=== PATIENT | male | born 1965 | race Caucasian/White ===

== ENCOUNTER → 2017-03-17 | Outpatient (CLI) | payer MEDICARE, OTHER ==
[2017-03-17 14:27] VITALS: BP 130/84; PULSE 72; TEMP 98.1; BMI 58.0
--- NOTE | 2017-04-28 07:05 | P.HPBAR ---
Bariatric H&P - History & Physicial H&P Date: 03/17/17 History & Physicial: Visit/CC: two year followup Patient initial contact: Initial weight: 209.424 kg Initial weight in pounds: 461.70 Height: 5 ft 9 in Initial BMI: 68.1 Last weight: Current weight: 178.353 kg Current weight in pounds: 393.20 Current BMI: 58.0 [place] body weight (based on NIH guidelines): 72.575 kg Excess body weight loss: 22.7% The patient is a 51 year-old M who presents for Bariatric Assessment. meet with save all operator. Healed well... abdomen looks good 2 week protein diet.... DATE OF SERVICE: 03/17/2017 CHIEF COMPLAINT: Follow-up sleeve gastrectomy. HISTORY OF PRESENT ILLNESS: Mendoza Garland is a very pleasant 51-year-old gentleman with long-standing history in the bariatric program over the past 3 to 5 years. He underwent a sleeve gastrectomy November 13, 2013. He is over 3 years out. His heaviest personal lifetime weight was 479 pounds for his 5 foot 9 frame. His body mass index was 70.9. Today he comes in weighing 392 pounds. He has gained 41 pounds in 2 years since his last visit. He reports undergoing a divorce which caused distress to his life. Body mass index is now reduced to 58. His percent excess weight loss is 28%. He has lost a total of 87 pounds. He denies any heartburn. He does report need for colonoscopy with his history of multiple high-risk colon polyps. He still lives almost 3 hours away. He is eager to return back to bariatric program and start weight loss. PAST MEDICAL HISTORY: 1. Coronary artery disease. 2. Super super morbid obesity. 3. Dyslipidemia. 4. Asthma. 5. Obstructive sleep apnea. 6. Venostasis disease. 7. Anxiety. 8. Vitamin D deficiency. 9. History of myocardial infarction. 10. Osteoarthritis of the lower extremities and back. 11. Hypothyroidism. 12. Iron deficiency anemia. 13. History of gastritis. 14. Multiple colon polyps. PAST SURGICAL HISTORY: 1. Cardiac catheterization in 2010. 2. Repeat stress echo in 2012. 3. Excision of left chest wall lipoma. 4. Upper endoscopy. 5. Status post sleeve gastrectomy. MEDICATIONS: 1. Requip. 2. Prilosec. 3. Nystatin powder. 4. Lopressor. 5. Synthroid. 6. Combivent. 7. Hydrocodone. 8. Fenofibrate 9. Zetia 10. Vitamin D. 11. Calcium. 12. Aspirin. 13. Atorvastatin ALLERGIES: 1. ACCUPRIL. 2. FLOVENT. SOCIAL HISTORY: No active tobacco or alcohol use. FAMILY HISTORY: Significant for super morbid obesity, including ovarian cancer. REVIEW OF SYSTEMS: CONSTITUTIONAL: His heaviest personal lifetime weight was 479 pounds for his 5 foot 9 frame. His body mass index was 70.9. Today he comes in weighing 392 pounds. Body mass index is now reduced to 58.1. He has achieved 12.8 point BMI point reduction. His percent excess weight loss is now up to 28%. He has lost a total of 87 pounds. [place] body weight of 168 pounds. MUSCULOSKELETAL: Bilateral knee pain including ankle pain. CARDIOVASCULAR: He is on at least 2 different blood pressure medications. Now restarted on medications for hyperlipidemia. HEENT: Wears glasses. Denies any trouble with hearing. SKIN: History of bilateral venostasis disease, including panniculitis. RESPIRATORY: Has severe obstructive sleep apnea, including asthma. GI: Prior history of gastric ulcerations. No reports of diarrhea or constipation. GENITOURINARY: Denies any urinary tract infection. ENDOCRINE: Has history of hypothyroidism. Denies diabetes. PSYCH: No reports of suicidal ideation; however, he does have depression; his doses have been unchanged. NEURO: No reports of headaches or seizure disorders. PHYSICAL EXAM: VITAL SIGNS: , 5 foot 9, 351 pounds. Body mass index of 58.1. Vital Signs Temp 98.1 F 03/17/17 14:24 Pulse 72 03/17/17 14:24 Resp BP 130/84 03/17/17 14:24 Pulse Ox GENERAL: Well-developed pleasant male in no acute distress. ABDOMEN: Soft, nontender, nondistended. No palpable incisional hernias CHEST: Nonlabored respirations. Equal bilateral excursions CARDIOVASCULAR: Regular rate. 2+ radial pulses MUSCULOSKELETAL: No clubbing, cyanosis, or edema. HEENT: No sclerae icterus. Extraocular movements grossly intact. No nasal drainage. NECK: Supple without lymphadenopathy. NEURO: No focal or lateralizing signs. Cranial nerves II-12 grossly intact. PSYCH: Appropriate affect. Alert and oriented to person, place and time. SKIN: Panniculitis of the abdomen. Well perfused. Good skin turgor. ASSESSMENT: 1. Morbid obesity due to exogenous caloric intake. 2. Body mass index reduced from 70.9 to 58.1. 3. Osteoarthritis of lower back secondary to morbid obesity. 4. Osteoarthritis of bilateral knees secondary to morbid obesit. 5. Cardiomyopathy from coronary artery disease with angioplasty. 6. Vitamin D deficiency. 7. Dietary surveillance and counseling. 8. History obstructive sleep apnea. 9. Elevated creatinine, hypertension renal insufficiency. 10. Weight regain following bariatric procedure. 11. Hypothyroidism. 12. Need for colonic screening. 13. History of gastric ulcers. PLAN: 1. He has struggled with his weight loss as he has multiple social stressors including a recent divorce. In the meantime, recommend two-week ketogenic diet. 2. Recommend bariatric metabolic panel. With his history of hypothyroidism, this puts him at risk for weight regain. 3. Recommend structured bariatric dietitian visits to restart weight loss. 4. Recommend colonoscopy. 5. With this history of gastric ulcers, may benefit from upper endoscopy as well. Past Medical History Past Medical History: Asthma, Chest Pain / Angina, Heart Failure, COPD, GERD/ Reflux, Hypertension, Myocardial Infarction ([place]), Osteoarthritis (OA), Respiratory Disorder, Sleep Apnea/CPAP/BIPAP, Thyroid Disorder Last Myocardial Infarction Date:: 2008 History of Any Multi-Drug Resistant Organisms: None Reported Past Surgical History: Bariatric Surgery, Heart Catheterization, Heart Catheterization With Stent Additional Past Surgical History / Comment(s): Sleeve 11/13/13 Past Anesthesia/Blood Transfusion Reactions: No Reported Reaction Date of Last Stent Placement:: 2008, 2004, 1998 Past Psychological History: Depression Smoking Status: Former smoker Past Alcohol Use History: Rare Past Drug Use History: None Reported - Past Family History Mother Family Medical History: Cancer, Diabetes Mellitus Surgical - Exam Vital Signs Temp Pulse BP 98.1 F 72 130/84 03/17/17 14:24 03/17/17 14:24 03/17/17 14:24 Bariatric Checklist Checklist: Plan: Checklist: EGD: 1. Hiatal hernia: 2. H. Pylori: HgbA1c: Vitamin D: Smoking: Former smoker Primary care physician referral: dr le Psychiatry clearance: Cardiology clearance: Sleep study: Diet journal: VTE risk score: VTE risk level: Rehab needs at discharge:
== END | disposition home or self-care (01) ==
LOC: BARWHC3 13:01
PROVIDERS: ATTEND Surgery Plastic and Reconstructive Surgery
DX: Z48.815 Encounter for surgical aftercare following surgery on the digestive system (principal); E66.01 Morbid (severe) obesity due to excess calories; M47.816 Spondylosis without myelopathy or radiculopathy, lumbar region; M17.0 Bilateral primary osteoarthritis of knee; I25.10 Atherosclerotic heart disease of native coronary artery without angina pectoris; E55.9 Vitamin D deficiency, unspecified; R79.89 Other specified abnormal findings of blood chemistry; I10 Essential (primary) hypertension; N28.9 Disorder of kidney and ureter, unspecified; E03.9 Hypothyroidism, unspecified; I42.9 Cardiomyopathy, unspecified; J44.9 Chronic obstructive pulmonary disease, unspecified; I50.9 Heart failure, unspecified; I25.2 Old myocardial infarction; E78.5 Hyperlipidemia, unspecified; Z88.8 Allergy status to other drugs, medicaments and biological substances; Z68.43 Body mass index [BMI] 50.0-59.9, adult; Z98.84 Bariatric surgery status; Z71.3 Dietary counseling and surveillance; Z87.09 Personal history of other diseases of the respiratory system; Z87.19 Personal history of other diseases of the digestive system; Z98.61 Coronary angioplasty status; Z87.891 Personal history of nicotine dependence; Z99.89 Dependence on other enabling machines and devices; Z79.82 Long term (current) use of aspirin; Z79.891 Long term (current) use of opiate analgesic; Z79.899 Other long term (current) drug therapy
CPT/HCPCS: 97803; G0463; 99211

== ENCOUNTER 2017-12-28 20:51 | Observation (INO) | payer MEDICARE, OTHER ==
--- NOTE | 2017-12-28 21:02 | ED ---
General Adult HPI - General Chief complaint: Arrhythmia/Palpitations Stated complaint: heart racing/lightheaded Time Seen by Provider: 12/28/17 21:01 Source: patient Mode of arrival: ambulatory Limitations: no limitations - History of Present Illness Initial comments: Liliya is a 52-year-old morbidly obese male with a history significant for known coronary artery disease and COPD who presents to the emergency department today for evaluation of palpitations. Patient reports that throughout the day he has been feeling his heart race. Palpitations are associated with some lightheadedness but no chest pain, chest pressure or shortness of breath. Palpitations of been happening throughout the day today but were persistent this evening which prompted him to come to the ER for further evaluation. Patient denies any recent change in his oral medications though he does admit that 3 weeks ago he was changed from Combivent to 2 different inhalers including albuterol and another inhaler he cannot recall at the time of initial evaluation. He reports he's been compliant with these medications. Patient does have COPD but denies any acute exacerbation feeling of wheezing or shortness of breath. Patient does have a history significant for coronary artery disease with STEMI in the past and stenting 3. - Related Data Home Medications Medication Instructions Recorded Confirmed Ezetimibe [Zetia] 10 mg PO HS 10/11/13 12/28/17 Levothyroxine Sodium [Synthroid] 25 mcg PO QAM 10/11/13 12/28/17 rOPINIRole HCL [Requip] 1 mg PO HS 10/11/13 12/28/17 Atorvastatin Calcium 80 mg PO DAILY 10/10/14 12/28/17 Fenofibrate 150 mg PO HS 03/17/17 12/28/17 Albuterol Inhaler [Ventolin Hfa 1 - 2 puff INHALATION RT-Q6H PRN 12/28/17 Inhaler] Aspirin EC [Ecotrin Low Dose] 81 mg PO DAILY 12/28/17 12/28/17 Dabigatran [Pradaxa] 150 mg PO BID 12/28/17 12/28/17 Dronedarone [Multaq] 400 mg PO AC-BID 12/28/17 12/28/17 Ergocalciferol [Vitamin D2 50,000 unit PO FR 12/28/17 12/28/17 (DRISDOL)] Fluticasone/Vilanterol [Breo 1 puff INHALATION RT-DAILY 12/28/17 12/28/17 Ellipta 200-25 Mcg INH] Metoprolol Tartrate [Lopressor] 75 mg PO BID 12/28/17 12/28/17 Tamsulosin [Flomax] 0.4 mg PO DAILY 12/28/17 12/28/17 Umeclidinium [place] [Incruse 1 puff INHALATION RT-DAILY 12/28/17 12/28/17 Ellipta] Allergies Allergy/AdvReac Type Severity Reaction Status Date / Time fluticasone propionate Allergy Chest Pain Verified 12/28/17 21:28 [From Flovent Diskus] quinapril HCl [From Accupril] Allergy Rash/Hives Verified 12/28/17 21:28 Review of Systems ROS Statement: Those systems with pertinent positive or pertinent negative responses have been documented in the HPI. ROS Other: All systems not noted in ROS Statement are negative. Past Medical History Past Medical History: Asthma, Chest Pain / Angina, Heart Failure, COPD, GERD/ Reflux, Hypertension, Myocardial Infarction ([place]), Osteoarthritis ([place]), Respiratory Disorder, Sleep Apnea/CPAP/BIPAP, Thyroid Disorder Last Myocardial Infarction Date:: 2008 History of Any Multi-Drug Resistant Organisms: None Reported Past Surgical History: Bariatric Surgery, Heart Catheterization, Heart Catheterization With Stent Additional Past Surgical History / Comment(s): Sleeve 11/13/13 Past Anesthesia/Blood Transfusion Reactions: No Reported Reaction Date of Last Stent Placement:: 2008, 2004, 1998 Past Psychological History: Depression Smoking Status: Former smoker Past Alcohol Use History: Rare Past Drug Use History: None Reported - Past Family History Mother Family Medical History: Cancer, Diabetes Mellitus General Exam - General Exam Comments Initial Comments: GENERAL: Patient is well-developed and well-nourished. Patient is nontoxic and well- hydrated and is in no distress. Morbidly obese HENT: Normocephalic, Atraumatic. Neck is soft and supple. No significant lymphadenopathy is noted. Oropharynx is clear. Moist mucous membranes. Neck has full range of motion without eliciting any pain. EYES: The sclera were anicteric and conjunctiva were pink and moist. Extraocular movements were intact and pupils were equal round and reactive to light. Eyelids were unremarkable. PULMONARY: Unlabored respirations. Good breath sounds bilaterally. No audible rales rhonchi or wheezing was noted. CARDIOVASCULAR: There is a regular rate and rhythm without any murmurs gallops or rubs. Extremities are warm and well perfused ABDOMEN: Soft and nontender with normal bowel sounds. SKIN: Skin is clear with no lesions or rashes and otherwise unremarkable. Skin is warm and dry, no diaphoresis NEUROLOGIC: Patient is alert and oriented x3. Cranial nerves II through XII are grossly intact. Motor and sensory are also intact. Normal speech, volume and content. Symmetrical smile. MUSCULOSKELETAL: Normal extremities with adequate strength and full range of motion. No lower extremity swelling or edema. No calf tenderness. LYMPHATICS: No significant lymphadenopathy is noted PSYCHIATRIC: Normal psychiatric evaluation. Limitations: no limitations Limitations: no limitations Course Vital Signs 12/28/17 20:52 Temperature 98.1 F Pulse Rate 150 H Respiratory 18 Rate Blood Pressure 116/67 O2 Sat by Pulse 95 Oximetry EKG Findings - EKG Comments: EKG Findings:: EKG obtained at 2102, rate is 95, rhythm is sinus, normal axis, normal intervals, IA 172, QRS 96, QTC 480. There are no acute ST elevations or depressions. There are Q waves indicating previous [place]. There are frequent PVCs. Medical Decision Making - Medical Decision Making Patient with a significant pulmonary and cardiac history presenting with palpitations and initial heart rate of 150 vital signs otherwise stable no hypoxia and no shortness of breath Cardiac workup was initiated EKG with frequent PVCs Labs with no significant abnormalities. Electrolytes within normal limits. TSH within normal limits. Troponin negative. Patient's heart rate remains in the 80s to 90s on the monitor, patient resting comfortably. During the patient's very significant history and profound tachycardia upon arrival I do feel he warrants admission to the hospital for further evaluation by cardiology. Patient is agreeable to this. Patient care was discussed with Dr. Patricio of the [facility] who accepts the patient to their service with a consult to cardiology. Placement orders and consult cardiology were placed. - Lab Data Result diagrams: 12/28/17 21:10 12/28/17 21:10 Lab Results 12/28/17 12/28/17 12/28/17 Range/Units 21:10 21:10 21:10 WBC 7.8 (3.8-10.6) k/uL RBC 4.66 (4.30-5.90) m/uL Hgb 13.8 (13.0-17.5) gm/dL Hct 41.5 (39.0-53.0) % MCV 89.2 (80.0-100.0) fL MCH 29.6 (25.0-35.0) pg MCHC 33.2 (31.0-37.0) g/dL RDW 13.3 (11.5-15.5) % Plt Count 315 (150-450) k/uL Neutrophils % 62 % Lymphocytes % 22 % Monocytes % 6 % Eosinophils % 7 % Basophils % 2 % Neutrophils # 4.9 (1.3-7.7) k/uL Lymphocytes # 1.8 (1.0-4.8) k/uL Monocytes # 0.5 (0-1.0) k/uL Eosinophils # 0.5 (0-0.7) k/uL Basophils # 0.1 (0-0.2) k/uL Sodium 139 (137-145) mmol/L Potassium 4.1 (3.5-5.1) mmol/L Chloride 103 (98-107) mmol/L Carbon Dioxide 27 (22-30) mmol/L Anion Gap 9 mmol/L BUN 22 H (9-20) mg/dL Creatinine 1.24 (0.66-1.25) mg/dL Est GFR (CKD-EPI)AfAm 76 (>60 ml/min/1.73 sqM) Est GFR (CKD-EPI)NonAf 66 (>60 ml/min/1.73 sqM) Glucose 138 H (74-99) mg/dL Calcium 9.2 (8.4-10.2) mg/dL Magnesium 1.8 (1.6-2.3) mg/dL Total Bilirubin 0.5 (0.2-1.3) mg/dL AST 23 (17-59) U/L ALT 24 (21-72) U/L Alkaline Phosphatase 38 (38-126) U/L Total Creatine Kinase 153 (55-170) U/L CK-MB (CK-2) 0.8 (0.0-2.4) ng/mL CK-MB (CK-2) Rel Index 0.5 Troponin I <0.012 (0.000-0.034) ng/mL NT-Pro-B Natriuret Pep pg/mL Total Protein 6.6 (6.3-8.2) g/dL Albumin 3.7 (3.5-5.0) g/dL TSH 2.090 (0.465-4.680) mIU/L 12/28/17 Range/Units 21:10 WBC (3.8-10.6) k/uL RBC (4.30-5.90) m/uL Hgb (13.0-17.5) gm/dL Hct (39.0-53.0) % MCV (80.0-100.0) fL MCH (25.0-35.0) pg MCHC (31.0-37.0) g/dL RDW (11.5-15.5) % Plt Count (150-450) k/uL Neutrophils % % Lymphocytes % % Monocytes % % Eosinophils % % Basophils % % Neutrophils # (1.3-7.7) k/uL Lymphocytes # (1.0-4.8) k/uL Monocytes # (0-1.0) k/uL Eosinophils # (0-0.7) k/uL Basophils # (0-0.2) k/uL Sodium (137-145) mmol/L Potassium (3.5-5.1) mmol/L Chloride (98-107) mmol/L Carbon Dioxide (22-30) mmol/L Anion Gap mmol/L BUN (9-20) mg/dL Creatinine (0.66-1.25) mg/dL Est GFR (CKD-EPI)AfAm (>60 ml/min/1.73 sqM) Est GFR (CKD-EPI)NonAf (>60 ml/min/1.73 sqM) Glucose (74-99) mg/dL Calcium (8.4-10.2) mg/dL Magnesium (1.6-2.3) mg/dL Total Bilirubin (0.2-1.3) mg/dL AST (17-59) U/L ALT (21-72) U/L Alkaline Phosphatase (38-126) U/L Total Creatine Kinase (55-170) U/L CK-MB (CK-2) (0.0-2.4) ng/mL CK-MB (CK-2) Rel Index Troponin I (0.000-0.034) ng/mL NT-Pro-B Natriuret Pep 175 pg/mL Total Protein (6.3-8.2) g/dL Albumin (3.5-5.0) g/dL TSH (0.465-4.680) mIU/L Disposition Clinical Impression: Palpitations, Tachycardia, Morbid obesity Disposition: ADMITTED IP TO THIS HOSP Condition: Stable Referrals: Michael Fontanez MD [Primary Care Provider] - 1-2 days
[2017-12-28 21:27] LABS: Basophils # (A) 0.1 k/uL (0-0.2); Basophils % (A) 2 %; Eosinophils # (A) 0.5 k/uL (0-0.7); Eosinophils % (A) 7 %; HCT 41.5 % (39.0-53.0); HGB 13.8 gm/dL (13.0-17.5); Lymphocytes # (A) 1.8 k/uL (1.0-4.8); Lymphocytes % (A) 22 %; MCH 29.6 pg (25.0-35.0); MCHC 33.2 g/dL (31.0-37.0); MCV 89.2 fL (80.0-100.0); Monocytes # (A) 0.5 k/uL (0-1.0); Monocytes % (A) 6 %; Neutrophils # (A) 4.9 k/uL (1.3-7.7); Neutrophils % (A) 62 %; Platelet Count 315 k/uL (150-450); RBC 4.66 m/uL (4.30-5.90); RDW 13.3 % (11.5-15.5); WBC 7.8 k/uL (3.8-10.6)
[2017-12-28 21:37] LABS: Albumin 3.7 g/dL (3.5-5.0); Calcium 9.2 mg/dL (8.4-10.2); Magnesium 1.8 mg/dL (1.6-2.3); Potassium 4.1 mmol/L (3.5-5.1); Total Bilirubin 0.5 mg/dL (0.2-1.3); Total Protein 6.6 g/dL (6.3-8.2)
[2017-12-28 21:47] LABS: Creatine Kinase 153 U/L (55-170)
--- NOTE | 2017-12-28 21:49 | XR ---
EXAMINATION TYPE: XR chest 2V DATE OF EXAM: 12/28/2017 COMPARISON: 11/14/2013 HISTORY: Chest pain TECHNIQUE: Frontal and lateral views of the chest are obtained. FINDINGS: Heart and mediastinum are normal. Lungs are clear. Diaphragm is normal. Bony thorax is int act. There are chest leads. IMPRESSION: Normal chest. No change.
[2017-12-28 22:00] LABS: Creatine Kinase MB 0.8 ng/mL (0.0-2.4); Troponin I <0.012 ng/mL (0.000-0.034)
[2017-12-28] MEDS ORDERED: NALOXONE 0.4 MG/ML 1 ML VIAL IV PRN (22:24)
[2017-12-28 22:49] LABS: INR 1.3 (<1.2); Partial Thromboplastin Time 36.1 sec (22.0-30.0)
[2017-12-28] MEDS ORDERED: IPRATROPIUM-ALBUTEROL 3 ML NEB INHALATION PRN (23:21)
[2017-12-28 23:37] VITALS: BMI 54.5
--- NOTE | 2017-12-29 00:14 | P.HPIM ---
History of Present Illness H&P Date: 12/28/17 Chief Complaint: palpitations and dizziness 52-year-old male with history of supraventricular tachycardia on multiple and blood thinners. Patient presented with sudden onset palpitations. He recalls that the only time he felt like this was 3 years ago when he was undergoing colonoscopy procedure was canceled due to irregular heartbeat and since then he has been on multi-chem blood thinners. Today while visiting his kids in the city [place] he felt an attack of short-lived palpitations around 3 PM and then another attack later this night both were associated with some lightheadedness denies any chest pain or shortness of breath. He reports being compliant with his medications. Denies any nausea vomiting or abdominal pain. Denies any fevers or chills. Patient reports some changes in his inhalers , where Ventolin was added recently that he's been using 3-4 times daily for the past 2- 3 weeks. He is currently seen on the medical floor, denies any chest pain or trouble breathing denies any fevers or chills denies any dizziness or lightheadedness. He feels back to normal. Patient reports being compliant with medications, denies any GI bleeding. In the emergency department he was found to have a heart rate of 150 later on was rate controlled with multiple PVCs. Otherwise EKG showed evidence of old infarct. Review of Systems Pertinent positives as noted in HPI. All other systems were reviewed and are negative Past Medical History Past Medical History: Asthma, Chest Pain / Angina, Heart Failure, COPD, GERD/ Reflux, Hypertension, Myocardial Infarction ([place]), Osteoarthritis (OA), Respiratory Disorder, Sleep Apnea/CPAP/BIPAP, Thyroid Disorder Last Myocardial Infarction Date:: 2008 History of Any Multi-Drug Resistant Organisms: None Reported Past Surgical History: Bariatric Surgery, Heart Catheterization, Heart Catheterization With Stent Additional Past Surgical History / Comment(s): Sleeve 11/13/13 Past Anesthesia/Blood Transfusion Reactions: No Reported Reaction Date of Last Stent Placement:: 2008, 2004, 1998 Past Psychological History: Depression Smoking Status: Former smoker Past Alcohol Use History: Rare Past Drug Use History: None Reported - Past Family History Mother Family Medical History: Cancer, Diabetes Mellitus Medications and Allergies Home Medications Medication Instructions Recorded Confirmed Type Ezetimibe [Zetia] 10 mg PO HS 10/11/13 12/28/17 History Levothyroxine Sodium [Synthroid] 25 mcg PO QAM 10/11/13 12/28/17 History rOPINIRole HCL [Requip] 1 mg PO HS 10/11/13 12/28/17 History Atorvastatin Calcium 80 mg PO DAILY 10/10/14 12/28/17 History Fenofibrate 150 mg PO HS 03/17/17 12/28/17 History Albuterol Inhaler [Ventolin Hfa 1 - 2 puff INHALATION RT-Q6H PRN 12/28/17 History Inhaler] Aspirin EC [Ecotrin Low Dose] 81 mg PO DAILY 12/28/17 12/28/17 History Dabigatran [Pradaxa] 150 mg PO BID 12/28/17 12/28/17 History Dronedarone [Multaq] 400 mg PO AC-BID 12/28/17 12/28/17 History Ergocalciferol [Vitamin D2 50,000 unit PO FR 12/28/17 12/28/17 History (DRISDOL)] Fluticasone/Vilanterol [Breo 1 puff INHALATION RT-DAILY 12/28/17 12/28/17 History Ellipta 200-25 Mcg INH] Metoprolol Tartrate [Lopressor] 75 mg PO BID 12/28/17 12/28/17 History Tamsulosin [Flomax] 0.4 mg PO DAILY 12/28/17 12/28/17 History Umeclidinium [place] [Incruse 1 puff INHALATION RT-DAILY 12/28/17 12/28/17 History Ellipta] Allergies Allergy/AdvReac Type Severity Reaction Status Date / Time fluticasone propionate Allergy Chest Pain Verified 12/28/17 21:28 [From Flovent Diskus] quinapril HCl [From Accupril] Allergy Rash/Hives Verified 12/28/17 21:28 Physical Exam Vitals: Vital Signs Temp Pulse Resp BP Pulse Ox 12/28/17 22:50 84 18 146/99 96 12/28/17 20:52 98.1 F 150 H 18 116/67 95 Intake and Output 12/28/17 12/28/17 12/29/17 14:59 22:59 06:59 Other: Weight 172.365 kg Constitutional: No acute distress, conversant, pleasant, morbidly obese Eyes: Anicteric sclerae, moist conjunctiva, no lid-lag Pupils equal round reactive to light ENMT: NC/AT Oropharynx clear, no erythema, exudates Neck: Supple, FROM, no masses, or JVD No carotid bruits No thyromegaly Lungs: Clear to auscultation Clear to percussion Normal respiratory effort, no accessory muscle use Cardiovascular: Heart regular in rate and rhythm, No murmurs, gallops, or rubs No peripheral edema Abdominal: Soft Nontender, no guarding, rebound or rigidity Abdomen moving with respiration Normoactive bowel sounds No hepatomegaly, No splenomegaly No palpable mass No abdominal wall hernia noted Skin: Normal temperature, tone, texture, turgor No induration No subcutaneous nodules No rash, lesions No ulcers Extremities: chronic skin changes over left ankle No digital cyanosis No clubbing Pedal pulses intact and symmetrical Radial pulses intact and symmetrical No calf tenderness Psychiatric: Alert and oriented to person, place and time Appropriate affect fair judgment Neuro Muscles Strength 5/5 in all 4 extremities Sensation to light touch grossly present throughout Cranial nerves II-XII grossly intact No focal sensory deficits Lymphatics: no palpable cervical or supraclavicular , or inguinal lymph nodes Results CBC & Chem 7: 12/28/17 21:10 12/28/17 21:10 Labs: Abnormal Lab Results - Last 24 Hours (Table) 12/28/17 12/28/17 Range/Units 21:10 22:09 INR 1.3 H (<1.2) APTT 36.1 H (22.0-30.0) sec BUN 22 H (9-20) mg/dL Glucose 138 H (74-99) mg/dL Assessment and Plan Assessment: 52 year old male with history of SVT of multaq, admitted under observation with anticipated length of stay of <48 hours, due to symptomatic SVT today, patient rate controlled later however, had multiple PVCs and continued to feel lightheaded, for which admitted for further workup and cardiology eval Plan: SVT, symptomatic with lightheadedness. history of CAD hypertension moderate persistent asthma LEIDA untreated hypothyroidism RLS cardiac monitoring resume home meds ECHOcardiogram and cardiology consult follow up electrolytes and morning labs DVT PPx, patient on pradaxa Surrogate decision-maker: patient sister CODE STATUS:full code Discussed with: Patient, ER, RN Anticipated discharge: <48hours Anticipated discharge place: home A total of 50 minutes was spent on the care of this complex patient more than 50 % of the time was spent in counseling and care coordination.
[2017-12-29 03:50] LABS: Basophils # (A) 0.1 k/uL (0-0.2); Basophils % (A) 2 %; Eosinophils # (A) 0.5 k/uL (0-0.7); Eosinophils % (A) 7 %; HCT 40.3 % (39.0-53.0); HGB 13.1 gm/dL (13.0-17.5); Lymphocytes # (A) 1.8 k/uL (1.0-4.8); Lymphocytes % (A) 26 %; MCH 29.5 pg (25.0-35.0); MCHC 32.5 g/dL (31.0-37.0); MCV 90.7 fL (80.0-100.0); Mean Platelet Volume 6.9; Monocytes # (A) 0.5 k/uL (0-1.0); Monocytes % (A) 7 %; Neutrophils # (A) 3.9 k/uL (1.3-7.7); Neutrophils % (A) 57 %; Platelet Count 312 k/uL (150-450); RBC 4.45 m/uL (4.30-5.90); RDW 13.5 % (11.5-15.5); WBC 6.9 k/uL (3.8-10.6)
[2017-12-29 04:15] LABS: Albumin 3.4 g/dL (3.5-5.0); Calcium 8.8 mg/dL (8.4-10.2); Potassium 4.5 mmol/L (3.5-5.1); Total Bilirubin 0.4 mg/dL (0.2-1.3)
[2017-12-29] MEDS: LEVOTHYROXINE 25 MCG TAB PO SCH ×2 (06:43→09:49)
[2017-12-29] MEDS ORDERED: DRONEDARONE 400 MG TAB PO SCH (07:30)
[2017-12-29] MEDS ORDERED: IPRATROPIUM 0.5 MG/2.5 ML NEBU INHALATION SCH (08:00)
[2017-12-29] MEDS ORDERED: SYMBICORT 160-4.5 MCG INHALER INHALATION SCH (08:00)
[2017-12-29] MEDS ORDERED: ATORVASTATIN 80 MG TAB PO SCH (09:00)
[2017-12-29] MEDS ORDERED: ASPIRIN 81 MG PO SCH (09:00)
[2017-12-29] MEDS ORDERED: TAMSULOSIN 0.4 MG CAP.ER.24H PO SCH (09:00)
[2017-12-29] MEDS ORDERED: DABIGATRAN 150 MG CAP PO SCH (09:00)
--- NOTE | 2017-12-29 11:13 | P.CRDCN ---
History of Present Illness History of present illness: This is a pleasant 52 male past medical history significant for coronary artery disease status post angioplasty, most recent cardiac catheterization 9 years ago. He states he had 6 stents in total. He also has COPD, hypertension, obstructive sleep apnea, hypothyroidism, COPD and questionable atrial fibrillation. He follows with a cloth shader out of [place] Dr. goff. He states he recently had a stress test in his office in July. We've asked to see him in consultation for symptoms of palpitations. He states yesterday while he was sitting down he felt his heart started to race. He said his pulse was very fast felt as though it was greater than 140 by palpation. He denies chest pain, shortness of breath, dizziness, nausea, vomiting or diaphoresis. He had no discomfort in the arms, back, neck or jaw. The palpitations ultimately subsided on their own with no alleviating factors. Documented heart rate on admission 150 but no EKG to reflect that. EKG on arrival reveals sinus mechanism with inferior Q waves noted and poor R- wave progression with no acute ST or T wave abnormalities noted there is evidence of PVCs. Telemetry tracings indicate sinus rhythm with PVCs and PACs. Chest x-ray is negative for an acute cardiopulmonary process. Laboratory data reviewed, hemoglobin 13.1, platelets 312, sodium 137, potassium 4.5, creatinine 1.09, magnesium 2.0, cardiac enzymes negative 2, and he proBNP 175, TSH 2.09. Current cardiac medications include aspirin 81 mg daily, atorvastatin 80 mg daily, Peridex 150 mg twice a day, multi-400 mg twice a day, study a 10 mg daily , fenofibrate 150 mg daily, Lopressor 75 mg twice a day. He also takes Requip, Lipitor, Flomax, albuterol. Review of Systems At the time of my exam: CONSTITUTIONAL: Denies fever. Denies chills. EYES: Denies blurred vision. Denies vision changes. Denies eye pain. EARS, NOSE, MOUTH & THROAT: Denies headache. Denies sore throat. Denies ear pain. CARDIOVASCULAR: Denies chest pain. Denies shortness of breath. Denies orthopnea. Denies PND. Denies palpitations. RESPIRATORY: Denies cough. GASTROINTESTINAL: Denies abdominal pain. Denies diarrhea. Denies constipation. Denies nausea. Denies vomiting. MUSCULOSKELETAL: Denies myalgias. INTEGUMENTARY: Denies pruitis. Denies rash. NEUROLOGIC: Denies numbness. Denies tingling. Denies weakness. PSYCHIATRIC: Denies anxiety. Denies depression. ENDOCRINE: Denies fatigue. Denies weight change. Denies polydipsia. Denies polyurina. GENITOURINARY: Denies burning, hematuria or urgency with micturation. HEMATOLOGIC: Denies history of anemia. Denies bleeding. Past Medical History Past Medical History: Asthma, Chest Pain / Angina, Heart Failure, COPD, GERD/ Reflux, Hypertension, Myocardial Infarction (AR), Osteoarthritis (OA), Respiratory Disorder, Sleep Apnea/CPAP/BIPAP, Thyroid Disorder Last Myocardial Infarction Date:: 2008 History of Any Multi-Drug Resistant Organisms: None Reported Past Surgical History: Bariatric Surgery, Heart Catheterization, Heart Catheterization With Stent Additional Past Surgical History / Comment(s): Sleeve 11/13/13 Past Anesthesia/Blood Transfusion Reactions: No Reported Reaction Date of Last Stent Placement:: 2008, 2004, 1998 Past Psychological History: Depression Smoking Status: Former smoker Past Alcohol Use History: Rare Past Drug Use History: None Reported - Past Family History Mother Family Medical History: Cancer, Diabetes Mellitus Medications and Allergies Home Medications Medication Instructions Recorded Confirmed Type Ezetimibe [Zetia] 10 mg PO HS 10/11/13 12/28/17 History Levothyroxine Sodium [Synthroid] 25 mcg PO QAM 10/11/13 12/28/17 History rOPINIRole HCL [Requip] 1 mg PO HS 10/11/13 12/28/17 History Atorvastatin Calcium 80 mg PO DAILY 10/10/14 12/28/17 History Fenofibrate 150 mg PO HS 03/17/17 12/28/17 History Albuterol Inhaler [Ventolin Hfa 1 - 2 puff INHALATION RT-Q6H PRN 12/28/17 History Inhaler] Aspirin EC [Ecotrin Low Dose] 81 mg PO DAILY 12/28/17 12/28/17 History Dabigatran [Pradaxa] 150 mg PO BID 12/28/17 12/28/17 History Dronedarone [Multaq] 400 mg PO AC-BID 12/28/17 12/28/17 History Ergocalciferol [Vitamin D2 50,000 unit PO FR 12/28/17 12/28/17 History (DRISDOL)] Fluticasone/Vilanterol [Breo 1 puff INHALATION RT-DAILY 12/28/17 12/28/17 History Ellipta 200-25 Mcg INH] Metoprolol Tartrate [Lopressor] 75 mg PO BID 12/28/17 12/28/17 History Tamsulosin [Flomax] 0.4 mg PO DAILY 12/28/17 12/28/17 History Umeclidinium [place] [Incruse 1 puff INHALATION RT-DAILY 12/28/17 12/28/17 History Ellipta] Allergies Allergy/AdvReac Type Severity Reaction Status Date / Time fluticasone propionate Allergy Chest Pain Verified 12/28/17 21:28 [From Flovent Diskus] quinapril HCl [From Accupril] Allergy Rash/Hives Verified 12/28/17 21:28 Physical Exam Vitals: Vital Signs Temp Pulse Pulse Resp BP BP Pulse Ox 12/29/17 04:00 16 12/29/17 03:39 97.8 F 60 16 107/65 94 L 12/29/17 00:00 98.1 F 76 16 139/77 92 L 12/28/17 22:50 84 18 146/99 96 12/28/17 20:52 98.1 F 150 H 18 116/67 95 Intake and Output 12/28/17 12/29/17 12/29/17 22:59 06:59 14:59 Other: # Voids 1 Weight 172.365 kg Blood pressure 107/65 heart rate 68 afebrile maintaining oxygen saturation on room air GENERAL: This is a 52-year-old male in no apparent distress at the time of my examination. Morbidly obese. HEENT: Head is atraumatic, normocephalic. Pupils are equal, round. Sclerae anicteric. Conjunctivae are clear. Mucous membranes of the mouth are moist. Neck is supple. There is no jugular venous distention. No carotid bruit is heard. LUNGS: Clear to auscultation no wheezes, rales or rhonchi. No chest wall tenderness is noted on palpation or with deep breathing. HEART: Regular rate and rhythm without murmurs, rubs or gallops. S1 and S2 heard. ABDOMEN: Soft, nontender. Bowel sounds are heard. No organomegaly noted. EXTREMITIES: No evidence of peripheral edema and no calf tenderness noted. VASCULAR: Radial and dorsalis pedis pulses palpated, no evidence of clubbing. NEUROLOGIC: Patient is awake, alert and oriented x3. Results 12/29/17 03:06 12/29/17 03:06 Cardiac Enzymes 12/28/17 12/28/17 12/29/17 Range/Units 21:10 21:10 03:06 AST 23 (17-59) U/L CK-MB (CK-2) 0.8 (0.0-2.4) ng/mL Troponin I <0.012 <0.012 (0.000-0.034) ng/mL 12/29/17 Range/Units 03:06 AST 22 (17-59) U/L CK-MB (CK-2) (0.0-2.4) ng/mL Troponin I (0.000-0.034) ng/mL Coagulation 12/28/17 Range/Units 22:09 PT 12.0 (9.0-12.0) sec APTT 36.1 H (22.0-30.0) sec CBC 12/28/17 12/29/17 Range/Units 21:10 03:06 WBC 7.8 6.9 (3.8-10.6) k/uL RBC 4.66 4.45 (4.30-5.90) m/uL Hgb 13.8 13.1 (13.0-17.5) gm/dL Hct 41.5 40.3 (39.0-53.0) % Plt Count 315 312 (150-450) k/uL Comprehensive Metabolic Panel 12/28/17 12/29/17 Range/Units 21:10 03:06 Sodium 139 137 (137-145) mmol/L Potassium 4.1 4.5 (3.5-5.1) mmol/L Chloride 103 103 (98-107) mmol/L Carbon Dioxide 27 26 (22-30) mmol/L BUN 22 H 21 H (9-20) mg/dL Creatinine 1.24 1.09 (0.66-1.25) mg/dL Glucose 138 H 91 (74-99) mg/dL Calcium 9.2 8.8 (8.4-10.2) mg/dL AST 23 22 (17-59) U/L ALT 24 25 (21-72) U/L Alkaline Phosphatase 38 28 L (38-126) U/L Total Protein 6.6 6.0 L (6.3-8.2) g/dL Albumin 3.7 3.4 L (3.5-5.0) g/dL Current Medications Generic Name Dose Route Start Last Admin Trade Name Freq PRN Reason Stop Dose Admin Aspirin 81 mg 12/29/17 09:00 Aspirin PO DAILY [facility] Atorvastatin Calcium 80 mg 12/29/17 09:00 Lipitor PO DAILY [facility] Budesonide/Formoterol Fumarate 2 puff 12/29/17 08:00 Symbicort 160-4.5 Mcg Inhaler INHALATION RT-BID [facility] Dabigatran 150 mg 12/29/17 09:00 Pradaxa PO BID [facility] Dronedarone 400 mg 12/29/17 07:30 Multaq PO AC-BID [facility] Ezetimibe 10 mg 12/29/17 21:00 Zetia PO HS [facility] Fenofibrate 160 mg 12/29/17 21:00 Lofibra PO HS [facility] Ipratropium [place] 0.5 mg 12/29/17 08:00 Atrovent Nebulized INHALATION RT-QID [facility] Levothyroxine Sodium 25 mcg 12/29/17 06:30 12/29/17 06:43 Synthroid PO Not Given DAILY@0630 [facility] Metoprolol Tartrate 75 mg 12/29/17 09:00 Lopressor PO BID [facility] Naloxone HCl 0.2 mg 12/28/17 22:24 Narcan IV Q2M PRN Opioid Reversal Ropinirole HCl 1 mg 12/29/17 00:00 12/29/17 05:55 Requip PO Not Given HS [facility] Tamsulosin HCl 0.4 mg 12/29/17 09:00 Flomax PO DAILY [facility] Intake and Output 12/28/17 12/29/17 12/29/17 22:59 06:59 14:59 Other: # Voids 1 Weight 172.365 kg 12/29/17 03:06 12/29/17 03:06 Assessment and Plan Assessment: ASSESSMENT Palpitations Coronary artery disease status post multiple angioplasties most recent heart catheterization 9 years ago. Hypertension Dyslipidemia Paroxysmal atrial fibrillation on long-term anticoagulation with pradaxa Hypothyroidism Obstructive sleep apnea COPD PLAN Obtain 2-D echocardiogram and Doppler study to assess cardiac structure and function. Obtain records from his primary cloth shader regarding his recent stress test. Apply 30 day event monitor, report to go to his primary cloth shader Dr. Garcia in [place]. Stable from a cardiac perspective. Lifestyle modifications recommended for weight loss. Thank you kindly for this consultation. Nurse Practitioner note has been reviewed, I agree with a documented findings and plan of care. Patient was seen and examined.
[2017-12-29] MEDS: METOPROLOL TARTRATE 25 MG TAB PO SCH ×2 (11:32→11:34)
[2017-12-29 14:46] VITALS: RESP 18
[2017-12-29 16:03] VITALS: BP 107/65; PULSE 60; TEMP 98.3
--- NOTE | 2017-12-29 17:55 | P.DS ---
Providers Date of admission: 12/28/17 22:24 Expected date of discharge: 12/29/17 Attending physician: Polina Haines MD Consults: 12/28/17 22:25 Consult Physician Urgent Consulting Provider: [facility] Consult Reason/Comments: tachycardia, palpitations Do you want consulting provider notified?: Yes, Notify in am Primary care physician: [facility] Course: Patient is a 52-year-old male with a past medical history of CAD status post cath with multiple stents, COPD, hypertension, LEIDA, hypothyroid rhythm, and A. fib who presented to the hospital due to complaint of palpitations. The patient 's heart rate was documented at 150 on admission with EKG showing sinus rhythm with poor R-wave progression and no ST or T-wave changes. Cardiology was consulted and recommended an echocardiogram and subsequent placement of a 30 day event monitor. The patient was subsequently cleared and is presently stable , and ready for discharge home with follow-up with his primary net manager Dr. Garcia in [place]. Physical Examination General: Awake, alert, in no acute distress HEENT: NC/AT, anicteric sclerae, moist conjunctiva, no lid-lag, PERRLA, oropharynx clear, no erythema, exudates Cardiovascular: S1/S2 wnl, no murmurs, rubs, or gallops Lungs: Clear to auscultation, normal respiratory effort, no accessory muscle use Abdominal: Soft, nontender, non-distended, no guarding, rebound, or rigidity, normoactive bowel sounds Skin: Warm, dry Extremities: 1+ LE edema aida Psychiatric: Alert and oriented to person, place and time, appropriate affect, Intact judgment Neuro: CN II-XI grossly intact, sensation to light touch grossly present throughout, no focal sensory deficits Discharge diagnosis: Paroxysmal SVTs, CAD s/p CABG, HTN controlled, HLD, Paroxysmal A-fib, Hypothyroidism, LEIDA, COPD A total of 40 minutes of time were spent preparing this complex discharge summary. Patient Condition at Discharge: Stable Plan - Discharge Summary New Discharge Prescriptions: Continue Ezetimibe [Zetia] 10 mg PO HS rOPINIRole HCL [Requip] 1 mg PO HS Levothyroxine Sodium [Synthroid] 25 mcg PO QAM Atorvastatin Calcium 80 mg PO DAILY Fenofibrate 150 mg PO HS Tamsulosin [Flomax] 0.4 mg PO DAILY Metoprolol Tartrate [Lopressor] 75 mg PO BID Fluticasone/Vilanterol [Breo Ellipta 200-25 Mcg INH] 1 puff INHALATION RT- DAILY Dronedarone [Multaq] 400 mg PO AC-BID Dabigatran [Pradaxa] 150 mg PO BID Albuterol Inhaler [Ventolin Hfa Inhaler] 1 - 2 puff INHALATION RT-Q6H PRN PRN Reason: Shortness Of Breath Aspirin EC [Ecotrin Low Dose] 81 mg PO DAILY Umeclidinium [place] [Incruse Ellipta] 1 puff INHALATION RT-DAILY Ergocalciferol [Vitamin D2 (DRISDOL)] 50,000 unit PO FR Discharge Medication List Ezetimibe [Zetia] 10 mg PO HS 10/11/13 [History] Levothyroxine Sodium [Synthroid] 25 mcg PO QAM 10/11/13 [History] rOPINIRole HCL [Requip] 1 mg PO HS 10/11/13 [History] Atorvastatin Calcium 80 mg PO DAILY 10/10/14 [History] Fenofibrate 150 mg PO HS 03/17/17 [History] Albuterol Inhaler [Ventolin Hfa Inhaler] 1 - 2 puff INHALATION RT-Q6H PRN [History] Aspirin EC [Ecotrin Low Dose] 81 mg PO DAILY 12/28/17 [History] Dabigatran [Pradaxa] 150 mg PO BID 12/28/17 [History] Dronedarone [Multaq] 400 mg PO AC-BID 12/28/17 [History] Ergocalciferol [Vitamin D2 (DRISDOL)] 50,000 unit PO FR 12/28/17 [History] Fluticasone/Vilanterol [Breo Ellipta 200-25 Mcg INH] 1 puff INHALATION RT-DAILY 12/28/17 [History] Metoprolol Tartrate [Lopressor] 75 mg PO BID 12/28/17 [History] Tamsulosin [Flomax] 0.4 mg PO DAILY 12/28/17 [History] Umeclidinium [place] [Incruse Ellipta] 1 puff INHALATION RT-DAILY 12/28/17 [ History] Follow up Appointment(s)/Referral(s): Michael Fontanez MD [Primary Care Provider] - 1-2 days Patient Instructions/Handouts: Heart Palpitations (ED), Tachycardia (ED) Activity/Diet/Wound Care/Special Instructions: Please f/u with Primary Munitions Handler Dr Garcia in [place] in 1-2 days. Discharge Disposition: HOME SELF-CARE
[2017-12-29] MEDS ORDERED: FENOFIBRATE 160 MG TAB PO SCH (21:00)
[2017-12-29] MEDS ORDERED: EZETIMIBE 10 MG TAB PO SCH (21:00)
--- NOTE | 2017-12-31 11:07 | ECHOF ---
Referral Reason:SVT, palpitations, PVCs frequent MEASUREMENTS -------- HEIGHT: 182.9 cm WEIGHT: 172.4 kg BP: IVSd: 1.6 cm (0.6 - 1.1) LVIDd: 3.2 cm (3.9 - 5.3) LVPWd: 1.6 cm (0.6 - 1.1) IVSs: 2.1 cm LVIDs: 2.4 cm LVPWs: 2.2 cm Ao Diam: 3.2 cm (2.0 - 3.7) LA Diam: 2.9 cm (2.7 - 3.8) FINDINGS -------- Sinus rhythm. This was a technically difficult study with suboptimal views. Morbid Obesity The left ventricular size is normal. There is moderate concentric left ventricular hypertrophy. O verall left ventricular systolic function is moderate-severely impaired with, an EF between 30 - 35 % . very difficult study. difficult to evaluate lv function. it appears to be severely impaired The RV was not well visualized. The left atrium was not well visualized. The right atrium was not well visualized. Lumason used The aortic valve was not well visualized. The mitral valve was not well visualized. The tricuspid valve was not well visualized. The pulmonic valve was not well visualized. The pericardium is normal. CONCLUSIONS -------- 1. Sinus rhythm. 2. This was a technically difficult study with suboptimal views. 3. Morbid Obesity 4. The left ventricular size is normal. 5. There is moderate concentric left ventricular hypertrophy. 6. Overall left ventricular systolic function is moderate-severely impaired with, an EF between 30 - 35 %. 7. very difficult study. difficult to evaluate lv function. it appears to be severely impaired 8. The RV was not well visualized. 9. The left atrium was not well visualized. 10. The right atrium was not well visualized. 11. Lumason used 12. The aortic valve was not well visualized. 13. The mitral valve was not well visualized. 14. The tricuspid valve was not well visualized. 15. The pulmonic valve was not well visualized. 16. The pericardium is normal. [place]: Vashti Gallegos [facility]
== END 2017-12-29 16:00 | disposition home or self-care (01) ==
LOC: EC 20:51 → 3OBS 22:24
PROVIDERS: ADMIT Internal Medicine; ATTEND Internal Medicine
DX: I47.1 Supraventricular tachycardia (principal); E66.01 Morbid (severe) obesity due to excess calories; I25.10 Atherosclerotic heart disease of native coronary artery without angina pectoris; J45.40 Moderate persistent asthma, uncomplicated; J45.909 Unspecified asthma, uncomplicated; K21.9 Gastro-esophageal reflux disease without esophagitis; E03.9 Hypothyroidism, unspecified; I48.0 Paroxysmal atrial fibrillation; G25.81 Restless legs syndrome; F32.9 Major depressive disorder, single episode, unspecified; M19.90 Unspecified osteoarthritis, unspecified site; G47.33 Obstructive sleep apnea (adult) (pediatric); J44.9 Chronic obstructive pulmonary disease, unspecified; I25.2 Old myocardial infarction; Z95.5 Presence of coronary angioplasty implant and graft; Z79.51 Long term (current) use of inhaled steroids; Z79.899 Other long term (current) drug therapy; Z79.82 Long term (current) use of aspirin; Z87.891 Personal history of nicotine dependence; Z83.3 Family history of diabetes mellitus; Z80.9 Family history of malignant neoplasm, unspecified; Z88.8 Allergy status to other drugs, medicaments and biological substances; E78.5 Hyperlipidemia, unspecified; Z95.1 Presence of aortocoronary bypass graft; Z98.61 Coronary angioplasty status; I11.0 Hypertensive heart disease with heart failure; I50.9 Heart failure, unspecified; I49.3 Ventricular premature depolarization; Z79.01 Long term (current) use of anticoagulants
CPT/HCPCS: 99285; 36415; 93005; 93270; 93271; 85379; 83880; 80053 ×2; 82550; 82553; 83735 ×2; 84443; 84484 ×2; 85025 ×2; 85610; 85730; 71046; G0378 ×2; C8929; Q9950; 93306